=== PATIENT | female | born 1950 | race Caucasian/White ===

== ENCOUNTER 2023-01-31 09:45 | Outpatient (CLI) | payer OTHER, SELFPAY ==
--- NOTE | 2023-01-31 09:15 | DI.RAD_ITS ---
Exam(s) XR KNEE RT 3V AP,LAT,NELI EXAM: XR KNEE RT 3V AP,LAT,NELI CLINICAL HISTORY: R knee pain. TECHNIQUE: 2D digital imaging was performed. Three views. COMPARISON: No exams were available for comparison FINDINGS: BONES: No acute fracture is present. No bony destructive lesion is seen. JOINTS: Severe narrowing of the medial femoral tibial joint space. There is mild periarticular spurr ing and sclerosis. There is mild varus angulation. There is mild spurring at the patellofemoral berkley nt which is not appear narrowed. No joint effusion is seen. SOFT TISSUE: Normal. 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 DATA REPOSITORY: RADIATION DOSE DELIVERED:
== END 2023-01-31 09:46 | disposition home or self-care (01) ==
LOC: DIORS 09:45
PROVIDERS: PCP Nurse Practitioner Family; Referring Provider Nurse Practitioner Family; Visit Provider Student in an Organized Health Care Education/Training Program
DX: M17.11 Unilateral primary osteoarthritis, right knee
CPT/HCPCS: 20610; 73562; 99203; J1040